=== PATIENT | male | born 1970 | race Hispanic/Latino ===

== ENCOUNTER → 2020-12-09 | Day surgery (SDC) | payer BC ==
[~2020-12-09] MED LIST: ALEVE220 MG PO; IOPAMIDOL 200 MG/ML 20 ML VIAL IT ONE; LIDOCAINE HCL 1% 30ML-PF VIAL ONE; LIDOCAINE HCL 2% LOCAL INJ 5 ML SDV VIAL INJ ONE; POVIDONE IODINE 0.05% 0.05 % ML PO ONE; PROPOFOL IV EMULSION 10 MG/ML 20 ML VIAL ONE; TRIAMCINOLONE ACET 40 MG/ML VIAL ONE
[2020-12-09 09:15] VITALS: BP 136/86
== END | disposition home or self-care (01) ==
LOC: OR 11:14
PROVIDERS: ATTEND Physical Medicine & Rehabilitation Pain Medicine
DX: M19.011 Primary osteoarthritis, right shoulder (principal); M75.51 Bursitis of right shoulder; M75.01 Adhesive capsulitis of right shoulder
CPT/HCPCS: 20610; 77002; 93005; J2001 ×2; J2704; J3301; Q9967

== ENCOUNTER → 2021-01-27 | Day surgery (SDC) | payer BC ==
[2021-01-27 09:15] VITALS: BP 119/70
== END | disposition home or self-care (01) ==
LOC: OR 05:54
PROVIDERS: ATTEND Physical Medicine & Rehabilitation Pain Medicine
DX: M75.51 Bursitis of right shoulder (principal); M75.01 Adhesive capsulitis of right shoulder; M54.12 Radiculopathy, cervical region; M19.011 Primary osteoarthritis, right shoulder
CPT/HCPCS: 20605; 20610 ×2; 77002; J2001 ×2; J2704; J3301; Q9967

== ENCOUNTER 2021-06-18 12:27 | Emergency (ER) | payer BC ==
[~2021-06-18] VITALS: Ht 165.1 cm; Wt 77.1 kg
[~2021-06-18 12:27] MED LIST changes: -IOPAMIDOL 200 MG/ML 20 ML VIAL IT ONE; -LIDOCAINE HCL 1% 30ML-PF VIAL ONE; -LIDOCAINE HCL 2% LOCAL INJ 5 ML SDV VIAL INJ ONE; -POVIDONE IODINE 0.05% 0.05 % ML PO ONE; -PROPOFOL IV EMULSION 10 MG/ML 20 ML VIAL ONE; -TRIAMCINOLONE ACET 40 MG/ML VIAL ONE
[2021-06-18] MEDS ORDERED: VENTOLIN HFA18 GM INH (15:45)
[2021-06-18] MEDS ORDERED: AZITHROMYCIN250 MG PO (15:46)
[2021-06-18] MEDS ORDERED: IBUPROFEN600 MG PO (15:46)
== END 2021-06-18 16:15 | disposition home or self-care (01) ==
LOC: FSED 12:55
DX: R05.9 Cough, unspecified (principal); J06.9 Acute upper respiratory infection, unspecified; B34.9 Viral infection, unspecified; J98.01 Acute bronchospasm
CPT/HCPCS: 71046; 93005; 99282